=== PATIENT | female | born 1990 | race Caucasian/White ===

== ENCOUNTER 2016-09-07 19:06 | Emergency (ER) | payer OTHER | END 2016-09-07 23:45 | disposition home or self-care (01) | LOC: ER 19:06 | DX: K52.29 Other allergic and dietetic gastroenteritis and colitis (principal); E86.0 Dehydration; F41.9 Anxiety disorder, unspecified; K21.9 Gastro-esophageal reflux disease without esophagitis; Z79.899 Other long term (current) drug therapy | CPT/HCPCS: 36415; 96361; 96374; 96375 ==

== ENCOUNTER 2016-09-08 21:30 | Emergency (ER) | payer OTHER | END 2016-09-09 01:55 | disposition home or self-care (01) | LOC: ER 21:30 | DX: A04.7 Enterocolitis due to Clostridium difficile (principal); R50.9 Fever, unspecified; E87.6 Hypokalemia; F41.9 Anxiety disorder, unspecified; Z79.899 Other long term (current) drug therapy | CPT/HCPCS: 36415; 96361; 96374; 96376 ==

== ENCOUNTER 2016-09-10 15:47 | Emergency (ER) | payer OTHER | END 2016-09-10 18:00 | disposition home or self-care (01) | LOC: ER 15:47 | DX: A04.7 Enterocolitis due to Clostridium difficile (principal); R53.1 Weakness; F41.9 Anxiety disorder, unspecified; Z79.899 Other long term (current) drug therapy | CPT/HCPCS: 36415; 96361; 96374; 96375; Q9967 ==